=== PATIENT | female | born 1960 | race Caucasian/White ===

== ENCOUNTER 2018-02-14 18:27 | Emergency (ER) | payer BC ==
[2018-02-14] MEDS ORDERED: KETOROLAC 30 MG/ML VIAL IVP ONE (18:39)
--- NOTE | 2018-02-14 18:58 | Emergency Department Record ---
History of Present Illness - General Chief Complaint: Fall Injury Stated Complaint: FELL Time Seen by Provider: 02/14/18 18:38 Source: Patient Mode of Arrival: Ambulatory Limitations: No limitations - History of Present Illness Initial Comments: The patient is here due to R hip/pelvis pain due to a fall one hour ago. She was standing on a window sill about 3 feet in the air and lost her balance and fell backwards hitting her R posterior buttock/pelvis area on the edge of a jacuzzi tub. She denies hitting her head or injuring her neck but is only having R hip/pelvis pain. The patient denies any spine pain, AP, leg numbness, weakness or any incontinence. The patient was able to stand after and weight bear with pain. MD Complaint: Fall Onset/Timin -: Hour(s) Fall From: From height (distance) Fall Witnessed: No Place Fall Occurred: Home Loss of Consciousness: None Prolonged Down Time?: No Severity: Moderate Severity scale (1-10): 3 Quality: Aching Associated Symptoms: Denies - Jordan Coma Scale Eye Response: (4) Open spontaneously Motor Response: (6) Obeys commands Verbal Response: (5) Oriented Alexis Total: 15 - Related Data Home Medications Medication Instructions Recorded Confirmed Last Taken Tizanidine HCl 4 mg PO QHS 02/14/18 02/14/18 02/13/18 Trazodone HCl 50 mg PO QHS 02/14/18 02/14/18 Unknown Previous Rx's Medication Instructions Recorded Hydrocodone/Acetaminophen [Victoria 1 - 2 each PO .EVERY 4-6 HRS PRN 02/14/18 5-325 Tablet] #15 tablet Naproxen [Naprosyn] 250 mg PO BID #14 tablet 02/14/18 Allergies Allergy/AdvReac Type Severity Reaction Status Date / Time No Known Drug Allergies Allergy Verified 02/14/18 18:45 Travel Screening - Travel/Exposure Within Last 30 Days Have you traveled within the last 30 days?: No - Travel/Exposure Within Last Year Have you traveled outside the [place] in the last year?: No - Additonal Travel Details Have you been exposed to anyone with a communicable illness?: No - Travel Symptoms Symptom Screening: None Review of Systems Constitutional: Denies: Chills, Fever Eyes: Denies: Eye discharge ENT: Denies: Congestion Respiratory: Denies: Cough, Dyspnea Past Medical History - SOCIAL HISTORY Smoking Status: Never smoker Alcohol Use: Rare Drug Use: None - RESPIRATORY Hx Respiratory Disorders: Yes Hx Asthma: Yes Hx Bronchitis: Yes - CARDIOVASCULAR Hx Cardio Disorders: No - NEURO Hx Neuro Disorders: No - GI Hx GI Disorders: No - Hx Genitourinary Disorders: No - ENDOCRINE Hx Endocrine Disorders: No - MUSCULOSKELETAL Hx Musculoskeletal Disorders: No - PSYCH Hx Psych Problems: Yes Hx Anxiety: Yes Comment:: trouble sleeping - HEMATOLOGY/ONCOLOGY Hx Hematology/Oncology Disorders: No Family Medical History Any Significant Family History?: No Hx Cancer: Mother Hx Heart Disease: Father, Mother Physical Exam - General General Appearance: Alert, Oriented x3, Cooperative, No acute distress - Head Head exam: Atraumatic, Normocephalic, Normal inspection - Eye Eye exam: Normal appearance, PERRL - Neck Neck exam: Normal inspection, Full ROM. negative: Tenderness - Respiratory Respiratory exam: Normal lung sounds bilaterally. negative: Respiratory distress - Cardiovascular Cardiovascular Exam: Regular rate, Normal rhythm, Normal heart sounds - GI/Abdominal GI/Abdominal exam: Soft, Normal bowel sounds. negative: Tenderness - Extremities Extremities exam: Normal inspection. negative: Full ROM (There is fairly normal ROM of the R hip with mild pain to the posterior pelvis area. ) Image of Full Body: 1 - Area of pain and tenderness. - Back Back exam: Reports: Normal inspection. Denies: Vertebral tenderness - Neurological Neurological exam: Alert. negative: Motor sensory deficit Course Vital Signs 02/14/18 18:31 Temperature 98.5 F Pulse Rate 66 Respiratory 16 Rate Blood Pressure 122/74 Pulse Ox 96 - Reevaluation(s) Reevaluation #1: The patient is doing slightly better with the pain medicines. I did discuss the neg xrays with the patient. 02/14/18 19:34 Reevaluation #2: The patient is doing better but still having significant pain. She is able to get up and walk slowly with very minimal difficulty. There is no limping or leg weakness or any AP. Due to the persistent pain we will order a pelvis CT to evaluate the bones better. 02/14/18 19:58 Reevaluation #3: The patient is doing better and is ambulating with minimal difficulty. I did discuss the neg xrays with her and the need for f/u. She is to take Naprosyn and Victoria for pain and see her PCP this week if not better. 02/14/18 22:40 Medical Decision Making - Data Complexity MDM Data: Labs Ordered and/or Reviewed, X-Ray Ordered and/or Reviewed - Lab Data Result diagrams: 02/14/18 18:56 02/14/18 18:56 - Radiology Data Radiology results: Report reviewed (All xrays: Neg for acute bony fx or dislocation.) Disposition Disposition: Discharge Clinical Impression: Contusion of flank Qualifiers: Encounter type: initial encounter Qualified Code(s): S30.1XXA - Contusion of abdominal wall, initial encounter Disposition: Home, Self-Care Condition: (2) Stable Instructions: Flank Pain (ED) Additional Instructions: Please rest as much as possible and take the Naprosyn and Victoria for pain. Please see your family doctor for recheck in 3 days if not better and return to the ER for any worsening symptoms. Prescriptions: Hydrocodone/Acetaminophen [Victoria 5-325 Tablet] 1 - 2 each PO .EVERY 4-6 HRS PRN #15 tablet PRN Reason: Pain Naproxen [Naprosyn] 250 mg PO BID #14 tablet Forms: Patient Portal Access Time of Disposition: 22:37 Quality - Quality Measures Quality Measures: N/A - Blood Pressure Screening View Details: Yes Does Patient Have Any of the Following: No Blood Pressure Classification: Pre-Hypertensive BP Reading Systolic Measurement: 122 Diastolic Measurement: 74 Screening for High Blood Pressure: < Pre-Hypertensive BP, F/U Documented > [ [id number]] Pre-Hypertensive Follow-up Interventions: Referral to alternative/primary care provider.
[2018-02-14 18:59] LABS: BASO % 0.6 % (0-6); EOS % 2.1 % (0-6); GRAN % 55.8 % (47-80); HEMATOCRIT 38.1 % (35.0-47.0); HEMOGLOBIN 12.5 gm/dl (11.6-16.0); LYMPH % 29.1 % (16-45); MEAN CELL VOLUME 95.3 fl (81-97); MEAN CORPUSCULAR HEMOGLOBIN 31.3 pg (27-33); MEAN CORPUSCULAR HGB CONC 32.8 g/dl (32-36); MEAN PLATELET VOLUME 10.1 fl (7.4-10.4); MONO % 12.4 % (0-9); PLATELET COUNT 261 K/uL (130-400); RED CELL DISTRIBUTION WIDTH 12.1 % (11.5-14.5); WHITE BLOOD COUNT W/O DIFF 4.8 K/uL (4.2-12.2)
[2018-02-14 19:09] LABS: BLOOD UREA NITROGEN 18 mg/dL (6-20)
[2018-02-14 19:10] LABS: CREATININE 0.6 mg/dL (0.5-0.9); EST GLOMERULAR FILTRATION RATE > 60 mL/min
[2018-02-14 19:12] LABS: GLUCOSE,RANDOM 108 mg/dL (74-109)
[2018-02-14] MEDS ORDERED: HYDROMORPHONE HCL 2 MG/ML VIAL IVP ONE ×2 (19:24→21:20)
[2018-02-14] MEDS ORDERED: ONDANSETRON HCL IV 4 MG/2 ML VIAL IVP ONE (19:25)
[2018-02-14 20:40] LABS: URINE APPEARANCE CLEAR; URINE BILIRUBIN NEGATIVE (NEGATIVE); URINE BLOOD NEGATIVE (NEGATIVE); URINE COLOR YELLOW; URINE GLUCOSE (UA) NEGATIVE (NEGATIVE); URINE KETONE NEGATIVE (NEGATIVE); URINE LEUKOCYTE ESTERASE NEGATIVE (NEGATIVE); URINE NITRITE NEGATIVE (NEGATIVE); URINE PROTEIN NEGATIVE (NEGATIVE); URINE UROBILINOGEN 0.2 E.U./dL (0.20 - 1.00)
[2018-02-14] MEDS ORDERED: HYDROCODONE/APAP 5/325MG TABLET PO ONE (22:37)
--- NOTE | 2018-02-16 08:17 | RADIOLOGY REPORT ---
EXAM: LUMBAR SPINE HISTORY: BACK PAIN. TECHNIQUE: Frontal and lateral views of the lumbar spine were obtained. Comparison: None. FINDINGS: Five non-rib bearing lumbar type vertebral bodies. The height and alignment is preserved. Minor degenerative changes at the L2-L3 level. The remaining disk spaces are preserved. IMPRESSION: MINOR DEGENERATIVE CHANGE L2-L3. JOB NUMBER: [id number] MTDD
--- NOTE | 2018-02-16 08:19 | RADIOLOGY REPORT ---
EXAM: PELVIS, THREE VIEWS HISTORY: FALL. TECHNIQUE: Three views of the bony pelvis were obtained. Comparison: None. Encounter: Initial. FINDINGS: Negative for acute fracture or dislocation. Well corticated ossific density near the greater trochanter of the right hip likely degenerative in nature. Mild degenerative change of the hips bilaterally. Osteopenia. IMPRESSION: NO ACUTE OSSEOUS ABNORMALITY. OSTEOPENIA WITH DEGENERATIVE CHANGE. JOB NUMBER: [id number] MTDD
--- NOTE | 2018-02-16 08:23 | RADIOLOGY REPORT ---
EXAM: RIGHT ANKLE HISTORY: FALL. TECHNIQUE: Three views of the right ankle were obtained. Comparison: None. Encounter: Initial. FINDINGS: Osteopenia. Mild lateral soft tissue swelling. Negative for acute fracture or dislocation. The ankle mortise is intact. IMPRESSION: MILD LATERAL SOFT TISSUE SWELLING. NEGATIVE FOR FRACTURE. JOB NUMBER: [id number] MTDD
--- NOTE | 2018-02-16 08:27 | CT SCAN REPORT ---
EXAM: CT OF THE PELVIS HISTORY: FALL. TECHNIQUE: Axial CT images of the pelvis were obtained with coronal and sagittal reconstructions. Comparison: Plain films from today's date. FINDINGS: Limited evaluation of intrapelvic structures shows a large amount of stool in the colon. No free air or free fluid. The osseous structures of the pelvis demonstrate no CT evidence for an acute fracture or dislocation. Moderate degenerative change to the hips bilaterally. The surrounding soft tissues are unremarkable. As noted on the plain film there is a well corticated ossific density near the greater trochanter of the right hip, which may reflect old trauma or spur. IMPRESSION: NEGATIVE FOR ACUTE OSSEOUS ABNORMALITY. JOB NUMBER: [id number] MTDD
--- NOTE | 2018-02-16 08:32 | CT SCAN REPORT ---
EXAM: CT OF THE ABDOMEN AND PELVIS HISTORY: RADIATING BACK PAIN. TECHNIQUE: CT of the abdomen and pelvis was performed following IV administration of 100 ml of Omnipaque 300 contrast. Lack of oral contrast limits evaluation of bowel. Comparison: Prior CT pelvis from today. FINDINGS: Limited evaluation of the lung bases shows reticulonodular changes of the right middle lobe which may reflect pneumonitis. A more dominant nodule in the lateral right middle lobe is present, measuring 7.3 mm. Nonemergent follow-up with CT chest is recommended. The osseous structures of the abdomen/ pelvis show degenerative changes of the lumbar spine, but are otherwise grossly intact. The liver, spleen, adrenal glands, pancreas, and kidneys are unremarkable. Normal appendix. There is a large amount of stool in the colon. No free air or free fluid. No abdominal or pelvic adenopathy. The gallbladder is present. IMPRESSION: NEGATIVE FOR ACUTE INTRAABDOMINAL/PELVIC PROCESS. JOB NUMBER: [id number] MTDD
== END 2018-02-14 22:52 | disposition home or self-care (01) ==
LOC: ER 18:27
DX: S30.0XXA Contusion of lower back and pelvis, initial encounter (principal); M25.551 Pain in right hip; R10.2 Pelvic and perineal pain; M25.571 Pain in right ankle and joints of right foot; W01.198A Fall on same level from slipping, tripping and stumbling with subsequent striking against other object, initial encounter; Y92.002 Bathroom of unspecified non-institutional (private) residence as the place of occurrence of the external cause
CPT/HCPCS: 99284 ×2; 96376; 96374; 96375; 85025; 80048; 81003; 73610; 72100; 72190; 72192; 74177; Q9967; J1885; J2405; J1170